=== PATIENT | female | born 1955 | race Two or more races ===

== ENCOUNTER → 2016-05-18 | Outpatient (CLI) | payer OTHER ==
--- NOTE | 2016-05-18 11:28 | DX ---
Tibia-Fibula, Right Leg Two Views History: Pain, post trauma. Date of injury 05/12/16. Struck by cleaning machine at work. Findings: No fracture or malalignment is identified. There is mild medial marginal osteophyte formati on of the knee joint. There is a prominent plantar calcaneal spur. Impression: Nothing acute identified. Results called to Antwan Louie MD.
== END ==
LOC: BRMIMAGING 10:00
DX: M79.604 Pain in right leg (principal); M77.31 Calcaneal spur, right foot
CPT/HCPCS: 73590-PO